=== PATIENT | female | born 1970 | race Two or more races ===

== ENCOUNTER 2018-03-27 08:56 | Emergency (ER) | payer OTHER ==
[~2018-03-27] VITALS: Ht 165.1 cm; Wt 81.6 kg
--- NOTE | 2018-03-27 08:59 | Emergency Room Report ---
History of Present Illness General Chief Complaint: Lower Extremity Injury Source: Patient, Family Member - daughter, EMS Present Illness HPI 48-year-old female with a history of fibroids and heavy vaginal bleeding in the past presents with a syncopal episode that occurred while she was sitting at home in chair folding laundry, she felt lightheaded and then had a syncopal episode but no fall, she reports she's been bleeding for a month now on her period, she reports she's had endometrial biopsies in the past which revealed chest fibroids. Never had to have a transfusion for this, and the only other complaint she has a suprapubic cramping this been intermittent and going on for a month now, partially relieved with Tylenol. She denies any urinary complaints , any chest pain, any shortness of breath, any hemoptysis, any leg swelling or pain, any recent travel. she reports she is not on iron supplements or any medications at all including no oral contraceptive pills or hormone replacement therapy. Allergies: Coded Allergies: No Known Allergies (Unverified , 03/27/18) Patient History Past Medical History: see triage record Reviewed Nursing Documentation: PMH: Agreed; PSxH: Agreed Nursing Documentation-PMH Past Medical History: No History, Except For Hx Hypertension: Yes Review of Systems All Other Systems: negative except mentioned in HPI Physical Exam Vital Signs Date Time Temp Pulse Resp B/P (MAP) Pulse Ox O2 Delivery O2 Flow Rate FiO2 03/27/18 08:44 98.2 94 16 162/80 98 Room Air 98.2 Sp02 EP Interpretation: reviewed, normal General Appearance: no apparent distress, alert, non-toxic Head: normocephalic Eyes: bilateral eye normal inspection, bilateral eye PERRL, bilateral eye EOMI , bilateral eye other - Pallor ENT: normal ENT inspection, hearing grossly normal, normal pharynx, no angioedema, normal voice, moist mucus membranes Neck: normal inspection, full range of motion, supple, supple/symm/no masses Respiratory: chest non-tender, lungs clear, normal breath sounds, chest symmetrical, palpation of chest normal Cardiovascular #1: normal peripheral pulses, regular rate, rhythm Cardiovascular #2: 2+ radial (R), 2+ radial (L), 2+ dorsalis pedis (R), 2+ dorsalis pedis (L) Gastrointestinal: normal inspection, non tender, soft, no mass, no guarding, no rebound Rectal: deferred Genitourinary: normal inspection, no CVA tenderness Musculoskeletal: back normal, gait/station normal, normal range of motion, no calf tenderness, Devin's Sign negative Neurologic: alert, responsive, toppiece chopper III-XII nml as tested, motor strength/tone normal, sensory intact, speech normal Psychiatric: judgement/insight normal, memory normal, mood/affect normal, no suicidal/homicidal ideation Skin: normal color, no rash, warm/dry, normal turgor Lymphatic: no adenopathy Medical Decision Making Reaction to Intervention: Improved Diagnostic Impression: Primary Impression: Syncope Additional Impression: Menorrhagia with irregular cycle ER Course Patient with a syncopal episode likely secondary to a month-long history of vaginal bleeding, she has known fibroids, and has suprapubic cramping but nontender abdominopelvic exam, no internal or genital examination was performed as this is a chronic problem. Patient is not on iron supplements, and does have a primary care doctor within 2 can follow, will give a prescription for iron supplements and recommend she take these as she has had a syncopal episode in the past and has a known history of anemia from heavy vaginal bleeding and fibroids. Patient does have a WBC of 12k, but no urinary symptoms and no fever or back pain so I do not suspect this to be indicative of infection. Her CXR shows no infection. I will recommend she f/u with her PMD for a recheck of her blood counts in the next week after starting ferrous sulfate; hgb is 9.7 now, so she may have some improvement in a week. EKG Diagnostic Results EKG Time: 09:22 EP Interpretation: no st-t changes, no t wave inversions, no S1Q3T3 Rate: normal Rhythm: NSR ST Segments: no acute changes ASA given to the pt in ED: No Rhythm Strip Diag. Results Rhythm Strip Time: 09:21 EP Interpretation: yes Rate: 74 Rhythm: NSR, no PVC's, no ectopy Chest X-Ray Diagnostic Results Chest X-Ray Diagnostic Results : Chest X-Ray Ordered: Yes # of Views/Limited/Complete: 1 View Indication: Other - syncope EP Interpretation: Yes Interpretation: no consolidation, no effusion, no pneumothorax, no acute cardiopulmonary disease Impression: No acute disease Electronically Signed by: Rodger Zaidi MD Reevaluation Time: 11:04 Last Vital Signs Date Time Temp Pulse Resp B/P (MAP) Pulse Ox O2 Delivery O2 Flow Rate FiO2 03/27/18 08:44 98.2 94 16 162/80 98 Room Air 98.2 Status: improved Reevaluation Impression Patient still feels well, BP improved with 1L NSS, abdominal exam still benign, patient's pain improved with toradol. Troponin negative, Hgb stable, no transfusion trigger required, will dc home with PMD f/u. Patient explained to return for severe bleeding or recurrent syncope. Disposition: HOME, SELF-CARE Condition: Stable Scripts Ibuprofen* (MOTRIN*) 600 Mg Tablet 600 MG ORAL Q8H PRN for For Pain, #14 TAB 0 Refills Prov: RODGER ZAIDI M.D 03/27/18 Ferrous Sulfate* (FERROUS SULFATE*) 325 Mg Tablet 325 MG ORAL TWICE A DAY, #60 TAB 0 Refills Prov: RODGER ZAIDI M.D 03/27/18 RODGER ZAIDI M.D Mar 27, 2018 08:59
[2018-03-27] MEDS ORDERED: Tetanus/Diptheria/Pertussis Vaccine 0.5ml Syr IM ONE ×2 (09:00→09:02)
[2018-03-27] MEDS ORDERED: Ketorolac 60mg Inj IM ONE (09:00)
[2018-03-27] MEDS ORDERED: Ketorolac 60mg Inj ONE (09:03)
[2018-03-27] MEDS ORDERED: Ketorolac 60mg Inj IV ONE (09:15)
[2018-03-27 09:29] VITALS: BP 101/73
[2018-03-27] MEDS ORDERED: FERROUS SULFAT325 MG ORAL (09:37)
[2018-03-27] MEDS ORDERED: IBUPROFEN600 MG ORAL (09:38)
[2018-03-27 10:14] LABS: BASOPHILS % (AUTO) 0.7 % (0.0-2.0); EOSINOPHILS % (AUTO) 0.9 % (0.0-3.0); HEMATOCRIT 30.9 % (37.0-47.0); HEMOGLOBIN 9.7 G/DL (12.0-16.0); LYMPHOCYTES % (AUTO) 10.8 % (20.0-45.0); MEAN CORPUSCULAR VOLUME 74 FL (80-99); MONOCYTES % (AUTO) 6.5 % (1.0-10.0); NEUTROPHILS % (AUTO) 81.1 % (45.0-75.0); PLATELET COUNT 229 K/UL (150-450); RED BLOOD COUNT 4.16 M/UL (4.20-5.40); RED CELL DISTRIBUTION WIDTH 16.4 % (11.6-14.8); WHITE BLOOD COUNT 12.4 K/UL (4.8-10.8)
--- NOTE | 2018-03-27 10:18 | Diagnostic Imaging Report ---
Indication: Dyspnea Comparison: None A single view chest radiograph was obtained. Findings: Cardiomediastinal appearance is within normal limits for age. Pulmonary vascularity is appropriate. The diaphragmatic contour is smooth and costophrenic angles are sharp. No pleural effusions are identified. The bones are unremarkable. Impression: No acute findings
[2018-03-27 10:24] LABS: ANION GAP 8 mmol/L (5-15); BLOOD UREA NITROGEN 8 mg/dL (7-18); CALCIUM 7.3 MG/DL (8.5-10.1); CARBON DIOXIDE 23 MMOL/L (21-32); CHLORIDE 109 MMOL/L (98-107); CREATININE 0.7 MG/DL (0.55-1.30); POTASSIUM 3.7 MMOL/L (3.5-5.1); SODIUM 140 MMOL/L (136-145)
[2018-03-27 10:28] LABS: ALANINE AMINOTRANSFERASE 27 U/L (12-78); ALBUMIN 2.6 G/DL (3.4-5.0); ALBUMIN/GLOBULIN RATIO 0.8 (1.0-2.7); ALKALINE PHOSPHATASE 60 U/L (46-116); ASPARTATE AMINO TRANSFERASE 25 U/L (15-37); BILIRUBIN,TOTAL 0.2 MG/DL (0.2-1.0)
[2018-03-27 10:53] VITALS: BP 130/74
[2018-03-27 11:09] VITALS: BP 130/74
--- NOTE | 2018-03-29 17:07 | Cardiology Report ---
APPROVED REPORT EKG Measurement Heart [id number] Normal sinus rhythm Normal ECG
== END 2018-03-27 11:13 | disposition home or self-care (01) ==
LOC: EDBD 08:56 → EMR 10:07
DX: R55 Syncope and collapse (principal); N92.0 Excessive and frequent menstruation with regular cycle; Z23 Encounter for immunization; N92.6 Irregular menstruation, unspecified; I10 Essential (primary) hypertension
CPT/HCPCS: 36415; 71045; 80053; 84484; 84702; 85025; 90471; 90715; 93005; 96361; 96372; 96374; 96375; 99284